=== PATIENT | female | born 1985 | race Caucasian/White ===

== ENCOUNTER 2019-03-23 13:05 | Emergency (ER) | payer BC ==
--- NOTE | 2019-03-23 14:31 | ED Physician Chart ---
ED Chief Complaint/HPI - Patient Information Date Seen:: 03/23/19 Time Seen:: 13:10 Chief Complaint:: Transient lightheadedness. History of Present Illness:: Pt came in by ambulance because she experienced transient lightheadedness at about 1220. No fever. Pt had nausea earlier but no vomiting. 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 No LOC. Allergies:: Allergies Allergy/AdvReac Type Severity Reaction Status Date / Time No Known Allergies Allergy Verified 03/23/19 14:12 Vitals:: Vital Signs - 8 hr 03/23/19 14:12 Temp 98.2 F HR 92 RR 23 BP 134/77 O2 Sat % 98 Historian:: Patient Family MD/PCP:: Dr. Rodriguez LMP:: Irregular. Pt is on Depoprovera injectable contraceptive. Review:: Nurse's Note Reviewed ED Review of Systems - Review of Systems General/Constitutional: No fever, No chills, No weight loss, No weakness, No edema, No loss of appetite Skin: No skin lesions, No rash, No bruising Head: No headache, Light headed (transient) Eyes: No loss of vision, No pain ENT: No earache, No nasal drainage, No sore throat Neck: No neck pain, No swelling, No stiffness, No mass noted Cardio Vascular: Chest pain (? in left upper chest that is not exertion related. No associated cardiac symptoms.), No palpitations, No PND, No orthopnea , No edema Pulmonary: No SOB, No cough, No wheezing GI: Nausea, No vomiting, No diarrhea, No pain G/U: No dysuria, Frequency (?), No hematuria [employer]: No vaginal discharge, No abnormal vaginal bleed Musculoskeletal: No bone or joint pain Endocrine: No polyuria, No polydipsia Psychiatric: No prior psych history Hematopoietic: No bruising, No lymphadenopathy Allergic/Immuno: No urticaria, No angioedema Neurological: No syncope, No focal symptoms, No weakness, No paresthesia, No headache, No confusion ED Past Medical History - Past Medical History Past Medical History: PUD/GERD, Other (IBS) Family History: Heart disease (in mother), Diabetes Melitus, HTN Social History: Non Smoker, Alcohol (occasional), No Drug Use, , Employed , Other (lives with her and son.) Surgical History: (in '13) Psychiatricy History: None Medication: Reviewed Family Medical History - Family Member Mother History Unknown: Yes ED Physical Exam - Physical Examination General/Constitutional: Awake, Well-developed, well-nourished (female), Alert, No distress, GCS 15, Non-toxic appearing, Ambulatory Other Gen/Cons comments:: Breathes comfortably, speaks clearly, and interacts appropriately. Head: Atraumatic Eyes: Lids, conjuctiva normal, PERRL, EOMI Skin: No rash, No ecchymosis, No lymphadenopathy ENMT: External ears, nose nl, TM canals nl, Nasal exam nl, Oropharynx nl Neck: Nontender, Full ROM w/o pain, No JVD, No nuchal rigidity, No mass Respiratory: Nl effort/Exclusion, Clear to Auscultation, No Wheeze/Rhonchi/Rales Cardio Vascular: RRR, No murmur, gallop, rubs, Carotid/Femoral/Distal pulses equal bilaterally GI: No tenderness/rebounding/guarding, No organomegaly, Normal BS's, Nondistended, No mass/bruits Other GI comments:: Abdomen is soft. : No CVA tenderness Extremities: No tenderness or effusion, Full ROM, normal strength in all extremities, No edema Neuro/Psych: Alert/oriented (oriented x 3), No focal deficits Misc: Normal back, No paraspinal tenderness ED Labs/Radiology/EKG Results - Lab Results Results: Laboratory Results - last 24 hr 03/23/19 03/23/19 03/23/19 14:05 15:00 15:00 WBC 6.5 RBC 4.64 Hgb 12.9 Hct 39.2 L MCV 84.4 MCH 27.8 MCHC Differential 33.0 RDW 12.7 Plt Count 271 MPV 8.0 Neutrophils % 71.6 Lymphocytes % 23.8 Monocytes % 3.2 Eosinophils % 0.7 Basophils % 0.7 PT 10.0 INR 0.96 PTT (Actin FS) 23.4 L Sodium Potassium Chloride Carbon Dioxide Anion Gap BUN Creatinine Est GFR ( Amer) Est GFR (Non-Af Amer) BUN/Creatinine Ratio Glucose Calcium Total Bilirubin AST ALT Alkaline Phosphatase Troponin I Total Protein Albumin Globulin Albumin/Globulin Ratio Urine Test NEGATIVE 03/23/19 03/23/19 15:00 15:00 WBC RBC Hgb Hct MCV MCH MCHC Differential RDW Plt Count MPV Neutrophils % Lymphocytes % Monocytes % Eosinophils % Basophils % PT INR PTT (Actin FS) Sodium 139 Potassium 3.9 Chloride 107 Carbon Dioxide 23.7 Anion Gap 12.2 BUN 9 Creatinine 0.6 Est GFR ( Amer) > 60.0 Est GFR (Non-Af Amer) > 60.0 BUN/Creatinine Ratio 15.0 Glucose 112 H Calcium 9.4 Total Bilirubin 0.4 AST 13 ALT 12 Alkaline Phosphatase 66 Troponin I < 0.01 L Total Protein 7.5 Albumin 4.5 Globulin 3.0 Albumin/Globulin Ratio 1.5 Urine Test - Radiology Results Results: CXR (1v): Based on my interpretation, mild scoliosis. NAD. Official report is pending. - EKG Interpretations EKG Time:: 14:53 Rate & Rhythm: NSR with VR 79. Comments:: Probable LAE. No acute ischemic changes. ED Septic Shock - . Is Septic Shock (SBP<90, OR Lactate>4 mmol\L) present?: No - <6hrs of presentation: Vital Signs: Vital Signs - 8 hr 03/23/19 14:12 Temp 98.2 F HR 92 RR 23 BP 134/77 O2 Sat % 98 ED Reassessment (Disposition) - Reassessment Reassessment:: 1645 Pt has been repeatedly evaluated. Pt is comfortable, stable, and is in no distress. CXR report is still pending. 1725 Pt feels well and is stable. No chest pain. EKG, CXR, and lab findings have been reviewed with pt. Pt requests to go home now and prefers to follow with her PCP Dr. Rodriguez tomorrow. Aftercare instructions have been given. Copies of EKG, lab reports, etc. are to be given to pt per nursing staff to take to PCP Dr. Rodriguez for follow-up. Reassessment Condition:: Improved - Diagnosis Diagnosis:: Transient lightheadedness. Consider vasovagal reaction. Stable without recurrence. Noncardiac chest pain, resolved. Consider gastrointestinal in origin. Tension headache. Stable. - Aftercare/Follow up Instructions Aftercare/Follow-Up Instructions:: Refer to Discharge Instructions Notes:: Bed rest for today. Increase oral hydration. May take Tylenol 500 mg tab one tab po q6h prn pain. Headache instructions given. F/U with PCP Dr. Rodriguez in one day for recheck. Return to ER immediately if condition worsens or if any further questions/problems. - Patient Disposition Discharge/Transfer:: Home Time:: 17:35 Condition at Disposition:: Stable, Improved
[2019-03-23 15:12] LABS: % BASOPHILS 0.7 % (0.0-2.0); % EOSINOPHILS 0.7 % (0.0-5.0); % LYMPHOCYTES 23.8 % (20.0-50.0); % MONOCYTES 3.2 % (2.0-10.0); % NEUTROPHILS 71.6 % (40.0-80.0); HEMATOCRIT 39.2 % (41.0-60); HEMOGLOBIN 12.9 gm/dL (12-16); LYMPHOCYTE ABSOLUTE 1.5 Th/cmm (1.5-3.0); MEAN CELL VOLUME 84.4 fl (81-100); MEAN CORPUSCULAR HEMOGLOBIN 27.8 pg (27.0-31.0); MONOCYTE ABSOLUTE 0.2 Th/cmm (0.3-1.0); NEUTROPHILE ABSOLUTE 4.8 Th/cmm (1.8-8.0); PLATELET COUNT 271 Th/cmm (150-400); RED BLOOD COUNT 4.64 Mil/cmm (3.80-5.10); RED CELL DISTRIBUTION WIDTH 12.7 % (11.5-20.0); WHITE BLOOD COUNT 6.5 Th/cmm (4.8-10.8)
[2019-03-23 15:21] LABS: INR 0.96 (0.5-1.4)
[2019-03-23 15:24] LABS: ANION GAP 12.2 (7.0-16.0); BUN - UREA NITROGEN 9 mg/dL (7-25); CALCIUM SERUM 9.4 mg/dL (8.6-10.3); CARBON DIOXIDE 23.7 mEq/L (21.0-31.0); CHLORIDE 107 mEq/L (98-107); CREATININE - SERUM 0.6 mg/dL (0.6-1.2); GFR AFRICAN-AMERICAN > 60.0 ml/min (>90); GFR NON AFRICAN-AMERICAN > 60.0 ml/min; GLUCOSE 112 mg/dL (70-105); POTASSIUM SERUM 3.9 mEq/L (3.5-5.1); SODIUM SERUM 139 mEq/L (136-145)
[2019-03-23 15:25] LABS: ALB/GLOB RATIO 1.5 (1.0-1.8); ALBUMIN 4.5 gm/dL (3.7-5.3); ALKALINE PHOSPHATASE 66 U/L (34-104); BILIRUBIN,TOTAL 0.4 mg/dL (0.3-1.0); SGOT 13 U/L (13-39); SGPT/ALT 12 U/L (7-52); TOTAL PROTEIN,SERUM 7.5 gm/dL (6.0-8.3)
--- NOTE | 2019-03-24 08:12 | Diagnostic Imaging Report ---
Portable chest x-ray History: Pain Allowing for portable technique the heart size is normal. No focal pulmonary parenchymal processes. No hilar or mediastinal abnormalities. Impression: No acute abnormalities.
== END 2019-03-23 18:04 | disposition home or self-care (01) ==
LOC: ER 13:05
DX: G44.209 Tension-type headache, unspecified, not intractable (principal); R42 Dizziness and giddiness; K21.9 Gastro-esophageal reflux disease without esophagitis; Z98.890 Other specified postprocedural states
CPT/HCPCS: 36415-UA; 71045-TC; 80053-TC; 81025-TC; 84484-TC; 85025-TC; 85610-TC; 93005; Z7610